=== PATIENT | male | born 1975 | race Caucasian/White ===

== ENCOUNTER 2017-10-02 21:45 | Observation (INO) | payer OTHER ==
--- NOTE | 2017-10-02 22:02 | EDPHY ---
H & P Stated Complaint: R Ankle Infection Time Seen by Provider: 10/02/17 22:02 HPI/ROS: HPI CHIEF COMPLAINT: Right ankle pain, redness, swelling HISTORY OF PRESENT ILLNESS: Patient is a 42-year-old male, he is otherwise healthy with no significant medical history he presents emergency room with right lateral ankle swelling redness warmth and pain. Patient states approximately a week ago he caught the back of his ankle on a piece of metal in his garage, over the past 24-48 hours he noticed some swelling, redness, pain and warmth. He is concerned about infection. Of note he is from out of town he lives in [facility]. He is here for a . Decided come the emergency room due to the increasing warmth or redness. He states he has had chills. He denies any significant severe pain. He has full range of motion of the right ankle. However laterally of the right ankle there is swelling, redness and mild pain. Warmth present. Past Medical History: Denies medical history Past Surgical History: Left arm fracture requiring multiple surgeries, hardware vision, and compartment syndrome Social History: Denies daily use of drugs alcohol tobacco. Resides in [place]. Family History: Noncontributory ROS REVIEW OF SYSTEMS: A comprehensive 10 point review of systems is otherwise negative aside from elements mentioned in the history of present illness. Exam Constitutional appears well nontoxic no acute distress triage nursing summary reviewed, vital signs reviewed, awake/alert. Eyes normal conjunctivae and sclera, EOMI, PERRLA. HENT normal inspection, atraumatic, moist mucus membranes, no epistaxis, neck supple/ no meningismus, no raccoon eyes. Respiratory clear to auscultation bilaterally, normal breath sounds, no respiratory distress, no wheezing. Cardiovascular rate normal, regular rhythm, no murmur, no edema, distal pulses normal. Gastrointestinal soft, non-tender, no rebound, no guarding, normal bowel sounds, no distension, no pulsatile mass. Genitourinary no CVA tenderness. Musculoskeletal right lower extremity: Neurovascular intact good distal pulse, good cap refill, swelling, redness, warmth noted over the right malleolus lateral aspect. Abrasion over the Achilles. No compartment syndrome. Full range of motion of the right ankle. Good distal pulse, good cap refill. Swelling noted. no midline vertebral tenderness, full range of motion, no calf swelling, no tenderness of extremities, no meningismus, good pulses, neurovascularly intact. Skin pink, warm, & dry, no rash, skin atraumatic. Neurologic awake, alert and oriented x 3, AAOx3, moves all 4 extremities equally, motor intact, sensory intact, CN II-XII intact, normal cerebellar, normal vision, normal speech. Psychiatric normal mood/affect. Heme/Lymph/Immune no lymphadenopathy. Differential Diagnosis: Includes but is not limited to in a particular order right ankle cellulitis, soft tissue infection, doubt septic joint, doubt deep space abscess, sepsis, bacteremia Medical Decision Making: Plan for this patient IV establishment blood draw, check CBC and inflammatory markers, blood cultures, x-ray the right ankle, IV Ancef 2 g, low threshold to admit. Re-evaluation: X-ray reviewed shows soft tissue swelling no gas. Blood work review shows inflammatory markers. I highly recommend the patient that patient gets treated with IV antibiotics and stays overnight for right lower extremity cellulitis. IV Ancef 2 g has been ordered. Long discussion with the patient about staying overnight for hospitalization for right lower extremity cellulitis. Given that is inflammatory markers are elevated, soft tissue swelling noted redness and warmth I do feel that it is appropriate to admit him overnight for right lower extremity cellulitis. He has agreed for this. 2330: Will discuss with the patient. Agrees for admission overnight for right lower extremity cellulitis. When compared both ankles the right ankle is twice the size of the left ankle. Erythematous warm this is been outline. Ancef has been given. Has slightly improved here in emergency room. Agrees for admission. Plan for overnight admission for IV antibiotics and observation. Source: Patient - Personal History Current Tetanus Diphtheria and Acellular Pertussis (TDAP): Yes - Medical/Surgical History Hx Asthma: No Hx Chronic Respiratory Disease: No Hx Diabetes: No Hx Cardiac Disease: No Hx Renal Disease: No Hx Cirrhosis: No Hx Alcoholism: No Hx HIV/AIDS: No Hx Splenectomy or Spleen Trauma: No Other PMH: Arm Fx W/ Surgical Repair - Social History Smoking Status: Former smoker Constitutional: Initial Vital Signs Temperature (C) 36.9 C 10/02/17 21:48 Heart Rate 103 H 10/02/17 21:48 Respiratory Rate 18 10/02/17 21:48 Blood Pressure 159/95 H 10/02/17 21:48 O2 Sat (%) 95 10/02/17 21:48 O2 Delivery Mode Room Air Allergies/Adverse Reactions: No Known Allergies Allergy (Unverified 10/02/17 21:48) Home Medications: Medication Instructions Recorded Cephalexin [Keflex (*)] 500 mg PO QID #36 cap 10/03/17 Tetrahydrozoline 0.05% [Visine (*)] 1 drop OP DAILY PRN 10/03/17 Medical Decision Making - Data Points Laboratory Results: Laboratory Results 10/02/17 22:15 10/02/17 22:15 Microbiology Results: MICROBIOLOGY 10/02/17 22:15 Blood Blood Culture - Preliminary 10/02/17 20:15 Blood Blood Culture - Preliminary Medications Given: Discontinued Medications Sodium Chloride (Ns) 1,000 mls @ 0 mls/hr IV ONCE ONE PRN Reason: Wide Open Stop: 10/02/17 22:10 Last Admin: 10/02/17 22:14 Dose: 1,000 mls Cefazolin Sodium (Cefazolin Syringe) 2 gm in 20 mls @ 200 mls/hr IVP EDNOW ONE Stop: 10/02/17 22:35 Last Admin: 10/02/17 22:36 Dose: 20 mls Cefazolin Sodium (Cefazolin Syringe) 2 gm in 20 mls @ 40 mls/hr IVP Q8HRS ONE PRN Reason: Protocol Stop: 10/03/17 06:29 Last Admin: 10/03/17 06:01 Dose: 20 mls Cefazolin Sodium (Cefazolin Syringe) 2 gm in 20 mls @ 200 mls/hr IVP ONCE ONE Stop: 10/03/17 12:05 Last Admin: 10/03/17 12:02 Dose: 20 mls Departure - Departure Disposition: [facility] Inpatient Acute Clinical Impression: Cellulitis Qualifiers: Site of cellulitis: extremity Site of cellulitis of extremity: lower extremity Laterality: right Qualified Code(s): L03.115 - Cellulitis of right lower limb Condition: Fair
[2017-10-02] MEDS ORDERED: NS 1,000 ML IV ONE (22:09)
[2017-10-02] MEDS ORDERED: ceFAZolin 2 GM/DEXTROSE 100 ML IV ONE (22:09)
[2017-10-02] MEDS ORDERED: ceFAZolin 2 GM/SWFI 2 GM/20 ML SYR IVP ONE (22:30)
[2017-10-02 22:31] LABS: PLATELET COUNT 238 10^3/uL (150-400)
[2017-10-02] MEDS ORDERED: ACETAMINOPHEN 325 MG TAB PO PRN (23:32)
[2017-10-02] MEDS ORDERED: ONDANSETRON DISINTEGRATING 4 MG TAB PO PRN (23:32)
[2017-10-02] MEDS ORDERED: ONDANSETRON 4 MG/2 ML VIAL IVP PRN (23:32)
--- NOTE | 2017-10-03 03:30 | PDGENHP ---
History and Physical - Chief Complaint Foot pain - History of Present Illness 42 yo M w/ no significant PMHx presents with R ankle pain. Patient states he cut his ankle on the metal kick plate for a door a few days ago. Over the last 24 hours he has noticed redness, pain, and swelling to the site. He also noticed subjective fevers over the last 24 hours. He is visiting [place] from [place] for a currently. He has no significant PMHx and takes no medication regularly. History Information - Allergies/Home Medication List Allergies/Adverse Reactions: No Known Allergies Allergy (Unverified 10/02/17 21:48) Home Medications: NK [No Known Home Meds] 10/02/17 [Last Taken Unknown] I have personally reviewed and updated: family history, medical history - Surgical History Additional surgical history: Arm surgery - Family History Additional family history: Asked, denies - Social History Smoking Status: Former smoker Review of Systems Review of Systems: ROS: 10pt was reviewed & negative except for what was stated in HPI & below Physical Exam Physical Exam: Temp Pulse Resp BP Pulse Ox 36.7 C 70 18 129/89 H 94 10/03/17 00:04 10/03/17 00:04 10/03/17 00:04 10/03/17 00:04 10/03/17 00:04 Constitutional: no apparent distress, not in pain Eyes: PERRL, EOMI Ears, Nose, Mouth, Throat: moist mucous membranes, no oral mucosal ulcers Cardiovascular: regular rate and rhythym, no murmur, rub, or gallop Respiratory: no respiratory distress, no rales or rhonchi Gastrointestinal: normoactive bowel sounds, soft, non-tender abdomen Skin: erythema (Erythema and swelling noted lateral R ankle) Musculoskeletal: full muscle strength, no muscle tenderness Neurologic: AAOx3, CN II-XII Intact Psychiatric: interacting appropriately, not anxious Lab Data & Imaging Review 10/02/17 22:15 10/02/17 22:15 WBC 8.72 10^3/uL (3.80-9.50) 10/02/17 22:15 RBC 4.25 10^6/uL (4.40-6.38) L 10/02/17 22:15 Hgb 13.5 g/dL (13.7-17.5) L 10/02/17 22:15 Hct 38.8 % (40.0-51.0) L 10/02/17 22:15 MCV 91.3 fL (81.5-99.8) 10/02/17 22:15 MCH 31.8 pg (27.9-34.1) 10/02/17 22:15 MCHC 34.8 g/dL (32.4-36.7) 10/02/17 22:15 RDW 12.6 % (11.5-15.2) 10/02/17 22:15 Plt Count 238 10^3/uL (150-400) 10/02/17 22:15 MPV 10.7 fL (8.7-11.7) 10/02/17 22:15 Neut % (Auto) 61.3 % (39.3-74.2) 10/02/17 22:15 Lymph % (Auto) 26.3 % (15.0-45.0) 10/02/17 22:15 [place] % (Auto) 8.4 % (4.5-13.0) 10/02/17 22:15 Eos % (Auto) 3.6 % (0.6-7.6) 10/02/17 22:15 Baso % (Auto) 0.3 % (0.3-1.7) 10/02/17 22:15 Nucleat RBC Rel Count 0.0 % (0.0-0.2) 10/02/17 22:15 Absolute Neuts (auto) 5.35 10^3/uL (1.70-6.50) 10/02/17 22:15 Absolute Lymphs (auto) 2.29 10^3/uL (1.00-3.00) 10/02/17 22:15 Absolute Monos (auto) 0.73 10^3/uL (0.30-0.80) 10/02/17 22:15 Absolute Eos (auto) 0.31 10^3/uL (0.03-0.40) 10/02/17 22:15 Absolute Basos (auto) 0.03 10^3/uL (0.02-0.10) 10/02/17 22:15 Absolute Nucleated RBC 0.00 10^3/uL (0-0.01) 10/02/17 22:15 Immature Gran % 0.1 % (0.0-1.1) 10/02/17 22:15 Immature Gran # 0.01 10^3/uL (0.00-0.10) 10/02/17 22:15 ESR 9 MM/HR (0-15) 10/02/17 22:15 Sodium 140 mEq/L (135-145) 10/02/17 22:15 Potassium 3.8 mEq/L (3.5-5.2) 10/02/17 22:15 Chloride 107 mEq/L (97-110) 10/02/17 22:15 Carbon Dioxide 23 mEq/l (22-31) 10/02/17 22:15 Anion Gap 10 mEq/L (8-16) 10/02/17 22:15 BUN 23 mg/dL (7-23) 10/02/17 22:15 Creatinine 0.9 mg/dL (0.7-1.3) 10/02/17 22:15 Estimated GFR > 60 10/02/17 22:15 Glucose 104 mg/dL (70-100) H 10/02/17 22:15 Calcium 9.4 mg/dL (8.5-10.4) 10/02/17 22:15 C-Reactive Protein 45.9 mg/L (<10.0) H 10/02/17 22:15 Imaging Review: Imaging Impressions Ankle X-Ray 10/02/17 22:08 Impression: No acute osseous abnormalities. Moderate soft tissue swelling around the lateral ankle. Assessment & Plan Assessment: 42 yo M p/w R foot cellulitis. Plan: 1. R foot cellulitis - No e/o sepsis physiology; ankle imaging unremarkable. Patient admitted for brief stint of IV antibiotics prior to discharge on oral antibiotics. - Admit for observation - Blood cultures obtained - Cefazolin 2g IV q8h - Likely ok to transition to orals in the morning Diet - Regular Code - Full Ppx - Low risk Dispo - Admit under observation status
[2017-10-03 04:51] LABS: PLATELET COUNT 208 10^3/uL (150-400)
[2017-10-03] MEDS ORDERED: ceFAZolin 2 GM/SWFI 2 GM/20 ML SYR IVP ONE ×2 (06:00→12:00)
[2017-10-03 07:56] VITALS: BP 118/82
--- NOTE | 2017-10-03 09:14 | GDS ---
[f rep st] DISCHARGE SUMMARY FINAL DIAGNOSES: 1. Right ankle cellulitis. 2. Mild anemia. HOSPITAL COURSE: A 42-year-old, healthy man who is visiting from [place] presents with right lower extremity cellulitis. He has received 2 doses of intravenous Ancef. He has significant clinical im provement. We will schedule him for an additional dose of Ancef at noon. He will then be transition ed to oral Keflex for a total of 10 days. He is leaving tonight to return to see [place]. He will follow up with his primary care physician there. I have given warnings regarding allergies as well as diarrhea for antibiotics. He will return to the emergency department if the cellulitis worsens. /[id number]/MODL
[2017-10-03] MEDS ORDERED: ceFAZolin 2 GM in NS 50 ML IV ONE (12:00)
== END 2017-10-03 12:33 | disposition home or self-care (01) ==
LOC: F1N 10-03 00:45
PROVIDERS: ADMIT Student in an Organized Health Care Education/Training Program; ATTEND Student in an Organized Health Care Education/Training Program
DX: L03.115 Cellulitis of right lower limb (principal); D64.9 Anemia, unspecified; Z87.891 Personal history of nicotine dependence
CPT/HCPCS: 73610; G0378; 96374; J0690